=== PATIENT | female | born 1985 | race Caucasian/White ===

== ENCOUNTER 2021-01-28 14:06 | Outpatient (CLI) | payer OTHER, SELFPAY ==
--- NOTE | 2021-01-28 14:13 | CT_ITS ---
WS: [id number] CT scan of the chest with IV contrast, additional two-dimensional coronal and sagittal reconstruction was performed. 01/28/2021 Clinical Data: ABNORMAL FINDINGS ON DIAGNOSTIC IMAGING CHEST XRAY Comparison: None. DLP: 629.[address] scans at [facility] use at least one of these dose optimization techniques: automat ed exposure control; mA and/or kV adjustment per patient size (includes targeted exams where dose is matched to clinical indication); or iterative reconstruction. Findings: No nodules, masses or effusions are seen. The thyroid gland shows normal enhancement. The heart size is normal with no pericardial effusion. No pneumonia or pneumothorax is seen. The pulmonary vasculari ty is normal. The pulmonary arterial system and thoracic aorta demonstrate no abnormalities or dilata tions. The trachea bifurcates normally into the bronchi. There is no axillary or significant mediasti nal adenopathy. The upper abdomen shows no acute abnormalities. There is a 0.3 cm central nonobstructing right renal calculus. CT/CT chest w con* [id number] Impression: Negative CT scan of the chest with IV contrast.
[2021-01-28] MEDS: iohexol 300 mg/mL 100 mL Btl IV (14:26)
== END 2021-01-28 14:07 | disposition home or self-care (01) ==
PROVIDERS: PCP Nurse Practitioner Family; Visit Provider Nurse Practitioner Family
DX: R93.89 Abnormal findings on diagnostic imaging of other specified body structures (principal)
CPT/HCPCS: 71260; Q9967